=== PATIENT | male | born 1950 | race Caucasian/White ===

== ENCOUNTER → 2020-04-25 14:42 | Outpatient (CLI) | payer MEDICARE, OTHER, SELFPAY ==
[2020-04-25 15:28] LABS: Basophils # 0.1 K/mm3 (0-0.2); Basophils % 0.9 % (0.1-2.0); Eosinophils # 0.2 K/mm3 (0.0-0.4); Eosinophils % 2.7 % (0.1-12.0); Hemoglobin 13.4 g/dL (14.1-18.0); Lymphocytes # 1.9 K/mm3 (0.7-4.5); Mean Corpuscular HGB Conc 31.3 g/dL (31.8-35.4); Mean Corpuscular Hemoglobin 26.8 pg (27.0-31.2); Mean Corpuscular Volume 85.7 fl (80-94); Mean Platelet Volume 7.6 fl (7.4-10.4); Monocytes # 0.8 K/mm3 (0.1-1.0); Monocytes % 8.9 % (1.7-9.3); Neutrophils # 5.6 K/mm3 (1.8-7.8); Neutrophils % 65.3 % (37.0-80.0); Platelet Count 238 K/mm3 (142-424); Red Blood Count 5.01 M/mm3 (4.60-6.20); Red Cell Distribution Width 14.3 % (11.5-17.5); White Blood Count 8.6 K/mm3 (4.8-10.8)
[2020-04-25 16:29] LABS: Alanine Aminotransferase 19 U/L (12-78); Albumin/Globulin Ratio 1.2 (1.1-1.8); Alkaline Phosphatase 148 U/L (38-126); Anion Gap 16.3 mEq/L (5-15); Aspartate Amino Transferase 31 U/L (17-59); Bilirubin,Total 0.5 mg/dl (0.2-1.3); Blood Urea Nitrogen 39 mg/dl (9-20); Calcium 9.3 mg/dl (8.4-10.2); Carbon Dioxide 22 mmol/L (22.0-30.0); Chloride 109 mmol/L (98-107); Estimated Glomerular Filt Rate 19 ml/min (>60); GFR (African American) 23 ML/MIN (>60); Globulin 3.3 g/dL (1.3-3.2); Glucose 104 mg/dl (74-100); Potassium 5.3 mmoL/L (3.5-5.1); Sodium 142 mmol/L (136-145); Total Protein,Serum 7.3 g/dl (6.3-8.2)
[2020-04-25 16:59] LABS: Prostate Specific Ag Screen 1.5 ng/ml (0.0-4.0)
== END ==
PROVIDERS: Visit Provider Urology
DX: C67.9 Malignant neoplasm of bladder, unspecified (principal); Z12.5 Encounter for screening for malignant neoplasm of prostate; R31.9 Hematuria, unspecified
CPT/HCPCS: 36415; 80053; 85025; 87086; 87088; 87186; G0103

== ENCOUNTER → 2020-06-21 12:06 | Outpatient (CLI) | payer MEDICARE, OTHER, SELFPAY ==
--- NOTE | 2020-06-21 12:07 | CT_ITS ---
PROCEDURE: CT ABDOMEN PELVIS WO CON CLINICAL INDICATION: bladder cancer worsening kidney fuction ileostomy, bladder cancer x 2 worsening kidney function no prior COMPARISON: No exams were available for comparison TECHNIQUE: Axial images obtained with sagittal and coronal reformats. All CT scans at the facility use one or more dose reduction, viz: automated exposure control, ma/kV adjustment per patient size (including targeted exams where dose is matched to indication, i.e. head), or iterative reconstruction technique. FINDINGS: LOWER THORAX: No acute finding. There are clips at the GE junction ABDOMEN & PELVIS: There is a 10 mm hypodensity in the right hepatic lobe posteriorly segment 6. The spleen, adrenal glands, pancreas, and gallbladder have an unremarkable unenhanced appearance. There is severe bilateral hydronephrosis and hydroureter. There is minimal thickening of the urinary bladder wall on the left and may be due to nondistention. There are no previous exams available for comparison. No pelvic mass or abnormal fluid collection. No renal or ureteral calculi. There are few small nodes in the pelvis No intestinal obstruction or free air. There is a mild amount of retained colonic feces. No evidence of appendicitis or diverticulitis. Colonic diverticulosis is noted. Region. There is degenerative disc disease at L4-5 and L5-S1. IMPRESSION: 1. Severe bilateral hydronephrosis and hydroureter. No obstructing lesions identified. 2. Minimal thickening along the left lateral wall the urinary bladder nonspecific and may be due to nondistention. 3. Small lower ventral abdominal wall hernia just superior to the symphysis pubis with some clips present at this region. Dictated by: Topher Dee MD 06/22/2020 08:13 Topher Dee MD in [place] 06/22/2020 08:13
[2020-06-21 13:34] LABS: Microscopic, Urine URINE MICROSCOPIC (MICROSCOPIC)
[2020-06-21 14:41] LABS: Hemoglobin 13.2 g/dL (14.1-18.0); Mean Corpuscular HGB Conc 31.5 g/dL (31.8-35.4); Mean Corpuscular Hemoglobin 26.9 pg (27.0-31.2); Mean Corpuscular Volume 85.6 fl (80-94); Mean Platelet Volume 7.5 fl (7.4-10.4); Neutrophils % 71.5 % (37.0-80.0); Platelet Count 232 K/mm3 (142-424); Red Cell Distribution Width 14.5 % (11.5-17.5); White Blood Count 8.8 K/mm3 (4.8-10.8)
[2020-06-21 14:42] LABS: Basophils # 0.1 K/mm3 (0-0.2); Basophils % 0.8 % (0.1-2.0); Eosinophils # 0.3 K/mm3 (0.0-0.4); Eosinophils % 3.3 % (0.1-12.0); Lymphocytes # 1.6 K/mm3 (0.7-4.5); Lymphocytes % 17.6 % (10-50); Monocytes # 0.6 K/mm3 (0.1-1.0); Monocytes % 6.8 % (1.7-9.3); Neutrophils # 6.3 K/mm3 (1.8-7.8)
[2020-06-21 14:52] LABS: Albumin Level 4.2 g/dl (3.5-5.0); Anion Gap 13.2 mEq/L (5-15); Blood Urea Nitrogen 36 mg/dl (9-20); Calcium 9.1 mg/dl (8.4-10.2); Carbon Dioxide 22 mmol/L (22.0-30.0); Chloride 111 mmol/L (98-107); Estimated Glomerular Filt Rate 22 ml/min (>60); GFR (African American) 26 ML/MIN (>60); Glucose 106 mg/dl (74-100); Phosphorous 4.3 mg/dl (2.5-4.5); Potassium 5.2 mmoL/L (3.5-5.1); Sodium 141 mmol/L (136-145)
[2020-06-21 14:56] LABS: Appearance,Urine CLEAR (Clear); Bilirubin,Urine Negative (Negative); Blood, Urine 2+ (Negative); Color,Urine YELLOW (Yellow); Glucose,Urine (UA) Negative (Negative); Ketones,Urine Negative (Negative); Leukocyte Esterase,Urine TRACE (Negative); Nitrate,Urine Negative (Negative); PH,Urine 5.5 (5.0-8.5); Protein,Urine 2+ (Negative); Urobilinogen,Urine 0.2 EU/dl (0.2)
[2020-06-21 15:02] LABS: Intact Parathyroid Hormone 90.3 pg/mL (7.5-53.5)
[2020-06-21 15:05] LABS: Creatinine,Urine Random 69 mg/dL (Not Estab.)
[2020-06-21 15:07] LABS: 25-OH Vitamin D, Total 50.8 ng/mL (30-100)
[2020-06-21 15:48] LABS: Bacteria,Urine Trace /lpf
== END ==
PROVIDERS: Internal Medicine Nephrology; PCP Family Medicine; Visit Provider Urology
DX: C67.9 Malignant neoplasm of bladder, unspecified (principal); N28.9 Disorder of kidney and ureter, unspecified; N18.4 Chronic kidney disease, stage 4 (severe)
CPT/HCPCS: 36415; 74176; 80069; 81001; 82306; 82570; 83970; 84155; 85025; 87086

== ENCOUNTER → 2020-06-24 10:34 | Outpatient (POV) | payer MEDICARE, OTHER, SELFPAY | PROVIDERS: Visit Provider Internal Medicine Nephrology | DX: Z00.00 Encounter for general adult medical examination without abnormal findings (principal) ==

== ENCOUNTER 2020-08-12 06:39 | Day surgery (SDC) | payer MEDICARE, OTHER, SELFPAY ==
[2020-08-08 13:24] VITALS: BMI 36.8
[2020-08-12] VITALS (12 sets, daily range): BP systolic 110–160; BP diastolic 31–84; PULSE 53–78; RESP 16–20; TEMP 36.2–43; O2SAT 94–100
[2020-08-12 07:23] LABS: Chloride 110 mmol/L (98-107); Potassium 4.7 mmoL/L (3.5-5.1); Sodium 141 mmol/L (136-145)
[2020-08-12 07:26] LABS: Anion Gap 15.7 mEq/L (5-15); Blood Urea Nitrogen 41 mg/dl (9-20); Carbon Dioxide 20 mmol/L (22.0-30.0); Creatinine Clearance Estimated 36 mL/min (50-200); Estimated Glomerular Filt Rate 18 ml/min (>60); GFR (African American) 22 ML/MIN (>60); Glucose 113 mg/dl (74-100)
[2020-08-12 07:30] LABS: Basophils # 0.1 K/mm3 (0-0.2); Basophils % 0.8 % (0.1-2.0); Eosinophils # 0.3 K/mm3 (0.0-0.4); Eosinophils % 3.8 % (0.1-12.0); Hematocrit 40.8 % (42.0-52.0); Hemoglobin 13.3 g/dL (14.1-18.0); Lymphocytes # 1.6 K/mm3 (0.7-4.5); Lymphocytes % 17.4 % (10-50); Mean Corpuscular HGB Conc 32.6 g/dL (31.8-35.4); Mean Corpuscular Volume 82.7 fl (80-94); Monocytes # 0.7 K/mm3 (0.1-1.0); Monocytes % 7.8 % (1.7-9.3); Neutrophils # 6.3 K/mm3 (1.8-7.8); Neutrophils % 70.4 % (37.0-80.0); Platelet Count 254 K/mm3 (142-424); Red Blood Count 4.93 M/mm3 (4.60-6.20); Red Cell Distribution Width 14.8 % (11.5-17.5)
[2020-08-12 07:44] LABS: Coronavirus 19 IgG Antibody Negative (Negative)
[2020-08-12 08:27] LABS: Coronavirus 19 IgM Antibody Negative (Negative)
--- NOTE | 2020-08-12 09:34 | HMH.ANESCL ---
[facility] Anesthesia Checklist - Patient Identification Patient Identification: Arm Band, Verbal (Name & ) - Structural Data Admitted From: Home Planned Operative Procedure/s: colon Consent for Planned Operative Procedure(s) Verified: Yes Verified Documents: History and Physical - NPO Status Verified Time NPO: 00:00 - Chart Verification Results Verified: CBC, BMP - Additional verifications Patient : No Anesthesia Reactions: No Hx Blood Transfusions: Yes Blood Transfusion Reaction: No Cephalosporin Allergy: No Previous Colonoscopy: No - Cardiovascular Assessment Heart Sounds: S1 & S2 Pulse Strength: Baseline Pulse Rhythm: Regular Peripheral Edema: No - Airway Assessment C-Spine Mobility Assessed: Yes TMJ Mobility Assessed: Yes Dentition: Edentulous - Neurological Assessment Level of Consciousness: Awake, Alert, Appropriate Hx Seizures: No Numbness or tingling in extremities: No - Anesthesia Plan Anesthesia Risk discussed: Yes Anesthesia Plan: Verified ASA Class: III Anesthesia Type: General [facility] History I have reviewed the patient's past medical history: Yes Medical History: Reports:: Cancer (bladder), Hypertension, Kidney Stones, Ulcer Denies:: Diabetes Mellitus Type 1, Diabetes Mellitus Type 2, Internal Pacemaker, MRSA, Seizures *Have you ever received a pneumonia vaccine?: No *Have you received a flu vaccine this season?: No Other Medical History: Denies: Blood Transfusion Reaction Anesthesia experience/problems:: none Other Surgeries: Yes: No Previous Surgery. No: Pacemaker Amputation: No Fractures: No - *Social History Last grade of school completed: Some college Smoking Status: Current every day smoker Tobacco Type: cigars # Packs/Day (cigarettes): 1 Alcohol Intake: never Alcohol Intake Frequency:: a few times a week Substance Use Type: other *Occupational Status:: retired Housing: house Household Members: spouse *Travel in the last 8 weeks: None Family Hx:: Cancer, Diabetes
--- NOTE | 2020-08-12 11:31 | HMH.ANESI ---
[facility] Anesthesia Record Part I Intake, IV Amount: 450 Estimated blood loss (mL): 5 Urine output (mL): 100 Blood Products used (#): none Blood Pressure: 110/31 SaO2: 94 Pulse Rate: 53 Respiratory Rate: 20 Temperature: 97.7 F Patient is:: Drowsy, Stable Stable to PACU at:: 11:27
--- NOTE | 2020-08-12 11:49 | HMH.OPNOTE ---
Date of procedure: 08/12/20 Pre-op Diagnosis:: Left hydroureteronephrosis Post-op Diagnosis:: Left hydroureteronephrosis, left ureteral orifice not visualized Procedure performed:: Cystoscopy with attempted cannulation of the left ureteral orifice Surgeon:: Dax Reynoso MD TURN DOWN WORKER:: Rao Kinney Anesthesia: GETA Estimated blood loss (mL): 0 Clinical Note:: 70-year-old white male with history of bladder cancer, right ureterovesical junction obstruction status post partial cystectomy and right ureteral reimplant now with new left-sided hydroureteronephrosis and worsening kidney function. His creatinine today was 3.4 and his previous creatinine 2.1. He denies any flank pain or urinary difficulties. Operative findings:: No evidence of recurrent bladder cancer, right ureteral orifice is present and is gaping but no evidence of a left ureteral orifice was found. Operative note:: Patient taken to the operating room after informed consent was obtained. The operating table in the supine position and general anesthesia administered. Preoperative antibiotics and sequential compression devices placed. He was then placed into the dorsal lithotomy position prepped and draped in the standard surgical fashion. The 22 [place] scope passed into the urethra and passed into the bladder without difficulty. Bladder was examined in a systematic fashion. Small amount of debris noted in the bladder base and the bladder was flushed of all debris. The bladder was then examined in a systematic fashion. There is no evidence of mucosal abnormalities, stones, diverticula or trabeculation. The right ureteral orifice was the gaping nature and no doubt is a refluxing type of ureter. Exhaustive attempts that finding the left ureteral orifice were unsuccessful. A ureteral catheter and guidewire passed through the scope and several possible areas were probed with no no luck. After an hour of attempting to find left ureteral orifice I aborted the procedure. The bladder drained and the scope removed. Urojet placed into the urethra for comfort measures. Patient transferred to recovery in stable condition. We will need to set up an antegrade nephrostomy with antegrade pyelogram and internalization of a stent. Condition: stable Disposition: PACU Specimens:: None Complications:: None
--- NOTE | 2020-08-12 11:49 | PC.NURSE ---
1139-attempted to void per urinal, unsucessful, pt reports he would like to use bathroom when he gets to post op, denies pain, eating ice chips and drinking water w/out difficulty, vss, will continue to monitor
--- NOTE | 2020-08-12 11:59 | PC.NURSE ---
1154-detailed report called to BENNY Urbina 1157-pt transported to post op via stretcher with noreen rails up and left in care of BENNY Urbina with bed locked in lowest position, vss, pt stable
--- NOTE | 2020-08-12 14:55 | HMH.ANESII ---
[facility] Anesthesia Record Part II Discharge Time: 11:57 Destination: Surgical Day Care (OP Surgery) PACU nurse assessment reviewed?: Yes Patient Condition:: Good Anesthesia Complications:: None Swallowing reflex intact?: Yes Cyanosis?: No Blood Pressure: 150/75 Pulse Rate: 59 Temperature: 97.8 F Mental Status: Alert & Oriented Pain level:: 0 Nausea and/or vomitting:: None Intake, IV Amount: 35
== END 2020-08-12 12:33 | disposition home or self-care (01) ==
LOC: OR 06:41
PROVIDERS: PCP Family Medicine; Visit Provider Urology
PROC: 0TJB8ZZ Inspection of Bladder, Via Natural or Artificial Opening Endoscopic (ICD-10-PCS; CPT 52000; principal; 2020-08-12 10:00)
DX: Z85.51 Personal history of malignant neoplasm of bladder (principal); Z87.19 Personal history of other diseases of the digestive system; N13.39 Other hydronephrosis; Z87.442 Personal history of urinary calculi; I10 Essential (primary) hypertension
CPT/HCPCS: 52341; 36415; 80048; 85025; 86328; 96374

== ENCOUNTER 2020-10-28 09:33 | Day surgery (SDC) | payer MEDICARE, OTHER, SELFPAY ==
[2020-10-24 12:36] VITALS: BMI 37.0
--- NOTE | 2020-10-24 12:46 | SUR.PREOP ---
pt stated he just started antibiotic for bladder infection 10/23 . When he went to Dr muller sx preop in [place] his UA showed infection and he was srtarted on antibiotic. Spoke with Zohra to clarify that pt was ok to proceed with Dr Carmen garza on Wednesday. Zohra stated it okay to proceed.
[2020-10-28] VITALS (11 sets, daily range): BP systolic 123–149; BP diastolic 51–89; PULSE 52–62; RESP 12–20; TEMP 36.7–36.9; O2SAT 94–100
--- NOTE | 2020-10-28 10:11 | P.PN_ITS ---
[facility] Anesthesia Checklist - Patient Identification Patient Identification: Arm Band, Verbal (Name & ) - Structural Data Admitted From: Home Planned Operative Procedure/s: cysto Consent for Planned Operative Procedure(s) Verified: Yes Verified Documents: History and Physical - NPO Status Verified Time NPO: 00:00 - Chart Verification Results Verified: CBC, BMP - Additional verifications Patient : No Anesthesia Reactions: No Hx Blood Transfusions: Yes Blood Transfusion Reaction: No Cephalosporin Allergy: No Previous Colonoscopy: Yes - Cardiovascular Assessment Heart Sounds: S1 & S2 Pulse Strength: Baseline Pulse Rhythm: Regular Peripheral Edema: No - Airway Assessment C-Spine Mobility Assessed: Yes TMJ Mobility Assessed: Yes Dentition: Edentulous - Neurological Assessment Level of Consciousness: Awake, Alert, Appropriate Hx Seizures: No Numbness or tingling in extremities: No - Anesthesia Plan Anesthesia Risk discussed: Yes Anesthesia Plan: Patient unable to respond/answer ASA Class: III Anesthesia Type: General [facility] History I have reviewed the patient's past medical history: Yes Medical History: Reports:: Hypertension, Kidney Stones, Ulcer Denies:: Cancer, Diabetes Mellitus Type 1, Diabetes Mellitus Type 2, Internal Pacemaker, MRSA, Seizures *Have you ever received a pneumonia vaccine?: No *Have you received a flu vaccine this season?: No Other Medical History: Denies: Blood Transfusion Reaction Anesthesia experience/problems:: none Other Surgeries: Yes: No Previous Surgery. No: Pacemaker Amputation: No Fractures: No - *Social History Last grade of school completed: High school graduate Smoking Status: Current some day smoker Tobacco Type: cigars # Packs/Day (cigarettes): 1 Alcohol Intake: current Alcohol Intake Frequency:: a few times a month Substance Use Type: other *Occupational Status:: retired Housing: house Household Members: spouse *Travel in the last 8 weeks: [facility] the [facility] Family Hx:: Cancer, Coronary Artery Disease, Diabetes, Hypertension
[2020-10-28 10:37] LABS: Anion Gap 14.7 mEq/L (5-15); Blood Urea Nitrogen 43 mg/dl (9-20); Carbon Dioxide 17 mmol/L (22.0-30.0); Chloride 110 mmol/L (98-107); Creatinine Clearance Estimated 32 mL/min (50-200); Estimated Glomerular Filt Rate 16 ml/min (>60); GFR (African American) 19 ML/MIN (>60); Glucose 131 mg/dl (74-100); Potassium 4.7 mmoL/L (3.5-5.1); Sodium 137 mmol/L (136-145)
[2020-10-28 10:59] LABS: Basophils # 0.1 K/mm3 (0-0.2); Basophils % 0.6 % (0.1-2.0); Eosinophils # 0.3 K/mm3 (0.0-0.4); Eosinophils % 2.8 % (0.1-12.0); Hematocrit 38.6 % (42.0-52.0); Hemoglobin 12.8 g/dL (14.1-18.0); Lymphocytes # 1.5 K/mm3 (0.7-4.5); Mean Corpuscular Hemoglobin 27.6 pg (27.0-31.2); Mean Corpuscular Volume 83.8 fl (80-94); Mean Platelet Volume 7.9 fl (7.4-10.4); Monocytes # 0.7 K/mm3 (0.1-1.0); Monocytes % 6.6 % (1.7-9.3); Neutrophils # 8.3 K/mm3 (1.8-7.8); Neutrophils % 75.9 % (37.0-80.0); Platelet Count 240 K/mm3 (142-424); Red Blood Count 4.61 M/mm3 (4.60-6.20); Red Cell Distribution Width 15.4 % (11.5-17.5); White Blood Count 10.9 K/mm3 (4.8-10.8)
--- NOTE | 2020-10-28 13:13 | P.OP_ITS ---
Date of procedure: 10/28/20 Pre-op Diagnosis:: History of bladder cancer, history of left ureterovesical junction obstruction status post antegrade stent placement, bilateral hydronephrosis Post-op Diagnosis:: No evidence of bladder tumor recurrence, no evidence of any tumor or obstruction in the ureters. Procedure performed:: Cystoscopy with left stent removal and bilateral ureteroscopy Surgeon:: Dax Reynoso MD TRAVEL SALES CONSULTANT:: Other (manuel) Anesthesia: GETA Estimated blood loss (mL): 0 Clinical Note:: Patient is a 70-year-old white male with a history of bladder cancer and chronic kidney disease. At his last follow-up he was noted to have new left-sided hydronephrosis and I was unable to locate his left ureter at cystoscopy. He was referred to [facility] radiology department where he underwent left percutaneous nephrostomy and then it took 2 attempts to get a stent by the left UVJ. He has had the stent now for 6 weeks and returns for cystoscopic evaluation. Operative findings:: No evidence of recurrent bladder cancer. The right ureteral orifice is gaping owing to previous right ureteral reimplant. The stent was removed from his left ureteral orifice and ureteroscopy revealed no evidence of any stenosis or tumor in the left ureter. Operative note:: Patient taken to the operating room after informed consent was obtained. He was placed on the operating room table and general anesthesia administered. Preoperative antibiotics and sequential compression devices placed. Patient then placed into the dorsal lithotomy position and prepped draped in the standard surgical fashion. A 22 [place] cystoscope then passed into the urethral meatus and into the bladder without difficulty. The bladder was examined in a systematic fashion with a 30 and 7 degree lenses. The bladder had a lot of debris in it and it was irrigated free of any debris. The left stent was noted from the left ureteral orifice. A flexible grasper was placed through the cystoscope and the grasper removed without difficulty. The scope was replaced and there was no evidence of recurrent bladder tumors. The right ureteral orifice was gaping owing to a previous right ureteral reimplant. The left ureteral orifice was in its normal anatomic position. A guidewire was passed into the left ureteral orifice and the cystoscope removed. Our semirigid ureteroscope was then passed into the bladder and into the left ureter and up to the proximal ureter without evidence of tumors or other abnormality noted. At the distal ureter there is no evidence of any stenosis. Scope then passed into the right ureteral orifice and there is no evidence of any abnormalities here although the right ureter was dilated proximally and likely a chronic finding. The bladder then drained and the scope removed. Urojet placed into the urethra. Patient tolerated procedure well there are no complications. Condition: stable Disposition: PACU Specimens:: None Complications:: None
--- NOTE | 2020-10-30 08:18 | HMH.ANESII ---
[facility] Anesthesia Record Part II Discharge Time: 12:45 Destination: Surgical Day Care (OP Surgery) PACU nurse assessment reviewed?: Yes Patient Condition:: Good Anesthesia Complications:: None Swallowing reflex intact?: Yes Cyanosis?: No Blood Pressure: 130/67 Pulse Rate: 55 Temperature: 98 F Mental Status: Alert & Oriented Pain level:: 0 Nausea and/or vomitting:: None Intake, IV Amount: 0
[2020-10-30 08:19] VITALS: BP 130/67; PULSE 55; TEMP 36.6
== END 2020-10-28 13:41 | disposition home or self-care (01) ==
LOC: OR 09:36
PROVIDERS: PCP Family Medicine; Visit Provider Urology
PROC: (CPT 52310; principal; 2020-10-28 11:00)
DX: Z08 Encounter for follow-up examination after completed treatment for malignant neoplasm (principal); Z85.51 Personal history of malignant neoplasm of bladder; Z87.19 Personal history of other diseases of the digestive system; I10 Essential (primary) hypertension; Z87.442 Personal history of urinary calculi; Z72.0 Tobacco use; Z80.9 Family history of malignant neoplasm, unspecified; Z82.49 Family history of ischemic heart disease and other diseases of the circulatory system; Z84.89 Family history of other specified conditions; Z83.3 Family history of diabetes mellitus; Z79.899 Other long term (current) drug therapy
CPT/HCPCS: 52310; 80048; 85025; 96374; J2405

== ENCOUNTER → 2021-03-06 16:44 | Outpatient (CLI) | payer MEDICARE, OTHER, SELFPAY | PROVIDERS: Visit Provider Urology | DX: C67.9 Malignant neoplasm of bladder, unspecified (principal); Z01.812 Encounter for preprocedural laboratory examination; Z20.822 Contact with and (suspected) exposure to COVID-19 | CPT/HCPCS: U0003 ==

== ENCOUNTER 2021-03-07 09:30 | Day surgery (SDC) | payer MEDICARE, OTHER, SELFPAY ==
[2021-03-04 10:38] VITALS: BMI 33.6
[2021-03-07 09:52] VITALS: BP 146/75; PULSE 62; RESP 15; TEMP 36.8; O2SAT 99
[2021-03-07 10:30] VITALS: BP 136/78; PULSE 65; RESP 18; TEMP 36.6; O2SAT 98
--- NOTE | 2021-03-07 10:32 | CT_ITS ---
PROCEDURE: CT ABDOMEN PELVIS WO CON CLINICAL INDICATION: HX BLADDER CA Follow-up bladder cancer COMPARISON: CT CT ABDOMEN PELVIS WO CON from 06/21/2020 TECHNIQUE: Axial images obtained with sagittal and coronal reformats. All CT scans at the facility use one or more dose reduction, viz: automated exposure control, ma/kV adjustment per patient size (including targeted exams where dose is matched to indication, i.e. head), or iterative reconstruction technique. FINDINGS: LOWER THORAX: Coronary artery calcifications are noted. Lung bases are clear. ABDOMEN & PELVIS: Stable hypodensity right hepatic lobe measuring approximately 1 cm the gallbladder, spleen, and adrenal glands and pancreas have an unremarkable unenhanced appearance. There is severe bilateral hydronephrosis and hydroureter similar to the previous exam. There is a small amount air in the urinary bladder which may be due to recent instrumentation. No retroperitoneal or pelvic mass is apparent. No renal or ureteral calculi. Surgical clips are present in the pelvis. Surgical clips are also present in the pelvic region anteriorly deep to the abdominal wall. There postsurgical changes of the abdominal wall. No obvious pelvic mass. Urinary bladder contours asymmetric be more prominent on the right compared to the left side. Previously noted thickening of the lateral wall the urinary bladder is less apparent. There are degenerative changes in the lumbar spine with degenerative disc disease at L4-5 and L5-S1. No obvious lytic or blastic lesion apparent. No change in the lower abdominal wall hernia just superior to the symphysis pubis slightly toward the left containing fat. IMPRESSION: Overall stable CT appearance of the abdomen and pelvis. There remains severe bilateral hydronephrosis and hydroureter Stable hypodensity of the right lobe of the liver. Minimal amount of air density in the urinary bladder which could be due to recent instrumentation. Dictated by: Topher Dee MD 03/10/2021 09:25 Topher Dee MD in [place] 03/10/2021 09:25
[2021-03-07 10:51] VITALS: BP 145/76; PULSE 65; RESP 18; O2SAT 98
--- NOTE | 2021-03-07 11:06 | HMH.OPNOTE ---
Date of procedure: 03/07/21 Pre-op Diagnosis:: History of bladder cancer and bilateral UvJ obstruction Post-op Diagnosis:: Same Procedure performed:: Surveillance cystoscopy Surgeon:: Dax Reynoso MD Anesthesia: local Estimated blood loss (mL): 0 Clinical Note:: 70-year-old white male with a history of bladder cancer and bilateral ureterovesical junction obstruction. He has undergone previous TURBT as well as a partial cystectomy and right partial ureterectomy with right and a subsequent left ureteral vesicle junction obstruction was managed with a left stent placement. Patient returns today in routine follow-up denies any flank pain or hematuria. He has had recent right knee surgery and has lost 50 pounds of his own accord. Operative findings:: There was some debris in the bladder but no evidence of recurrent bladder tumors. Both distal ureters were wide open and larger than normal due to previous procedures. Operative note:: Patient taken to the cystoscopy suite after informed consent was obtained. On the stretcher is prepped draped in standard surgical fashion. Saline can placed into the urethra. After few minutes the flexible cystoscope introduced into the urethral meatus and passed to the prostatic urethra which showed no evidence of obstruction. Bladder was entered and examined in a systematic fashion. Was a moderate trabeculation present in the bladder is a bit unusual as it is prostate is nonobstructing he has not had previous TURP. There is no evidence of recurrent bladder tumors. There was some debris in the bladder which has been seen previously. Both ureteral orifices were gaping and wide open and clear efflux of urine was noted from each. Scope removed patient tolerated the procedure well. We will see him back in 6 months for cystoscopy. Condition: stable Disposition: same day Specimens:: None Complications:: None
[2021-03-07 11:21] LABS: Chloride 106 mmol/L (98-107)
[2021-03-07 11:22] LABS: Potassium 4.2 mmoL/L (3.5-5.1); Sodium 142 mmol/L (136-145)
[2021-03-07 11:24] LABS: Alanine Aminotransferase 11 U/L (12-78); Alkaline Phosphatase 139 U/L (38-126); Aspartate Amino Transferase 23 U/L (17-59); Bilirubin,Total 0.4 mg/dl (0.2-1.3); Blood Urea Nitrogen 39 mg/dl (9-20); Creatinine Clearance Estimated 43 mL/min (50-200); Estimated Glomerular Filt Rate 25 ml/min (>60); GFR (African American) 30 ML/MIN (>60)
[2021-03-07 11:25] LABS: Albumin Level 3.9 g/dl (3.5-5.0); Albumin/Globulin Ratio 1.2 (1.1-1.8); Anion Gap 16.2 mEq/L (5-15); Calcium 8.7 mg/dl (8.4-10.2); Carbon Dioxide 24 mmol/L (22.0-30.0); Globulin 3.3 g/dL (1.3-3.2); Glucose 116 mg/dl (74-100); Total Protein,Serum 7.2 g/dl (6.3-8.2)
== END 2021-03-07 11:39 | disposition home or self-care (01) ==
LOC: OUTP 09:34
PROVIDERS: PCP Family Medicine; Visit Provider Urology
DX: Z08 Encounter for follow-up examination after completed treatment for malignant neoplasm (principal); Z85.51 Personal history of malignant neoplasm of bladder; Z90.6 Acquired absence of other parts of urinary tract; Z96.0 Presence of urogenital implants; N32.89 Other specified disorders of bladder; I10 Essential (primary) hypertension; Z87.442 Personal history of urinary calculi; F32.9 Major depressive disorder, single episode, unspecified; E07.9 Disorder of thyroid, unspecified; Z79.899 Other long term (current) drug therapy
CPT/HCPCS: 52000; 36415; 74176; 80053

== ENCOUNTER → 2021-09-12 15:21 | Outpatient (CLI) | payer MEDICARE, OTHER, SELFPAY ==
--- NOTE | 2021-09-12 15:22 | US_ITS ---
PROCEDURE: US KIDNEY CLINICAL INDICATION: Bladder cancer COMPARISON: CT CT ABDOMEN PELVIS WO CON from 03/07/2021 FINDINGS: The right kidney is [id number]. Severe hydronephrosis with cortical thinning The left kidney is [id number]. Severe hydronephrosis with cortical thinning. The right proximal ureter is dilated. IMPRESSION: Severe bilateral hydronephrosis with bilateral renal cortical thinning. Dictated by: Topher Dee MD 09/12/2021 16:37 Topher Dee MD in [place] 09/12/2021 16:37
== END ==
PROVIDERS: PCP Family Medicine; Visit Provider Urology
DX: N13.5 Crossing vessel and stricture of ureter without hydronephrosis (principal); C67.9 Malignant neoplasm of bladder, unspecified
CPT/HCPCS: 76770; C9803; U0003; U0005

== ENCOUNTER 2021-09-15 09:18 | Day surgery (SDC) | payer MEDICARE, OTHER, SELFPAY ==
[2021-09-03 11:00] VITALS: BMI 32.6
[2021-09-15 09:33] VITALS: BP 142/73; PULSE 61; RESP 18; TEMP 36.7; O2SAT 98
[2021-09-15 10:12] VITALS: BP 141/81; PULSE 57; RESP 16; TEMP 36.6; O2SAT 97
[2021-09-15 11:26] LABS: Chloride 107 mmol/L (98-107); Potassium 5.3 mmoL/L (3.5-5.1); Sodium 138 mmol/L (136-145)
[2021-09-15 11:29] LABS: Alanine Aminotransferase 16 U/L (12-78); Albumin Level 3.7 g/dl (3.5-5.0); Albumin/Globulin Ratio 1.2 (1.1-1.8); Alkaline Phosphatase 122 U/L (38-126); Anion Gap 12.3 mEq/L (5-15); Aspartate Amino Transferase 30 U/L (17-59); Bilirubin,Total 0.2 mg/dl (0.2-1.3); Blood Urea Nitrogen 51 mg/dl (9-20); Calcium 8.7 mg/dl (8.4-10.2); Carbon Dioxide 24 mmol/L (22.0-30.0); Creatinine Clearance Estimated 40 mL/min (50-200); Estimated Glomerular Filt Rate 25 ml/min (>60); GFR (African American) 30 ML/MIN (>60); Glucose 106 mg/dl (74-100); Total Protein,Serum 6.7 g/dl (6.3-8.2)
--- NOTE | 2021-09-15 15:08 | HMH.OPNOTE ---
Date of procedure: 09/15/21 Pre-op Diagnosis:: History of bladder cancer, history of bilateral ureterovesical junction obstruction, bilateral hydronephrosis Post-op Diagnosis:: History of bladder cancer without evidence of recurrence today. Both ureteral orifices are wide open and gaping configuration possibly allowing some reflux of urine. Procedure performed:: Surveillance cystoscopy Surgeon:: Dax Reynoso MD Anesthesia: local Estimated blood loss (mL): 0 Clinical Note:: 71-year-old white male with history of bladder cancer and bilateral ureterovesical junction obstruction. The right UVJ obstruction required partial ureterectomy and reimplant. Patient has a history of partial cystectomy at the dome of the bladder for bladder cancer. His left UPJ obstruction has been treated with left stent placement in the past. An ultrasound performed today showed bilateral hydronephrosis with cortical thinning. Operative findings:: Patient's bladder showed severe trabeculation and a large capacity bladder with debris noted in the bladder. There is no evidence of bladder tumor recurrence. Both ureteral orifices were in their normal anatomic position and were of a gaping configuration possibly refluxing. Prostate is not enlarged. Operative note:: Patient taken to the operating room after informed consent was obtained. On the stretcher he was prepped and draped in the standard surgical fashion and 2% lidocaine placed into the urethra. After 5 minutes the flexible scope introduced into the urethral meatus and the scope passed to the prostatic urethra which showed some mild hyperplasia. The bladder was entered and examined in a systematic fashion. There was severe trabeculation noted and large capacity bladder extending towards the umbilicus. The ureteral orifices were of a gaping configuration. There was clear efflux of urine. There is no evidence of bladder tumor recurrence. There was debris noted in the bladder. Scope removed patient tolerated procedure well. We discussed the findings in his bladder and he was reassured there is no evidence of bladder cancer but he does have evidence of a neurogenic bladder and he was taught how to self catheterize and he is to do this 3 times a day and record residuals. He was given sample bag of catheters today. Abdomen draw complete metabolic profile before discharge to evaluate his kidney function. We discussed that catheterizing well decrease his bladder pressures and prevent any further kidney damage and will also help with some of urinary incontinence that he is having. Condition: stable Disposition: same day Specimens:: None Complications:: None
== END 2021-09-15 10:25 | disposition home or self-care (01) ==
LOC: OUTP 09:19
PROVIDERS: PCP Family Medicine; Visit Provider Urology
DX: N13.30 Unspecified hydronephrosis (principal); Z85.51 Personal history of malignant neoplasm of bladder; Z87.448 Personal history of other diseases of urinary system; Z79.899 Other long term (current) drug therapy
CPT/HCPCS: 52000; 80053

== ENCOUNTER → 2022-03-14 12:07 | Outpatient (CLI) | payer MEDICARE, OTHER, SELFPAY | PROVIDERS: Visit Provider Urology | DX: C67.9 Malignant neoplasm of bladder, unspecified (principal); Z01.812 Encounter for preprocedural laboratory examination; Z20.822 Contact with and (suspected) exposure to COVID-19 | CPT/HCPCS: C9803; U0003; U0005 ==

== ENCOUNTER 2022-03-16 10:39 | Day surgery (SDC) | payer MEDICARE, OTHER, SELFPAY ==
[2022-03-11 13:22] VITALS: BMI 26.8
[2022-03-16 10:55] VITALS: BP 122/54; PULSE 69; RESP 18; TEMP 36.6; O2SAT 97
[2022-03-16 11:43] VITALS: BP 117/66; PULSE 68; RESP 18; O2SAT 98
[2022-03-16 11:53] VITALS: BP 117/66; PULSE 68; RESP 18; O2SAT 98
--- NOTE | 2022-03-16 12:38 | P.OP_ITS ---
Date of procedure: 03/16/22 Pre-op Diagnosis:: History of bladder cancer Post-op Diagnosis:: History of bladder cancer without evidence of recurrence today. Procedure performed:: Cystoscopy Surgeon:: Dax Reynoso MD Anesthesia: local Estimated blood loss (mL): 0 Clinical Note:: 79-year-old white male with a history of bladder cancer presents for surveillance cystoscopy. His has since he was last seen in September 2021 and he has lost about 80 pounds of his own accord. He denies any interval hematuria but does state that he is having a lot of sediment in the urine. He has been catheterizing his bladder twice a day since his last cystoscopy visit with me in September 2021. He states he gets is much out by catheterization as he does by voiding which is usually between 4 and 500 cc. Operative findings:: There was no evidence of recurrent bladder cancer today. There was quite a bit of sediment in the bladder. There was little resistance to passage of the 16 [place] Citizen red rubber catheter which was performed prior to the procedure to empty the bladder. This was sent off for urinalysis and culture. Operative note:: Patient taken to the cystoscopy suite after informed consent was obtained. On the stretcher he was prepped draped in the standard surgical fashion. 2% lidocaine placed into the urethra and clamped for 5 minutes. After 5 minutes the 16 [place] Citizen red rubber catheter passed into the urethra there was a little bit of resistance at the bulbar urethra but the coud? catheter was passed into the bladder and a urine specimen was sent off for culture. The bladder was emptied with a catheter and the catheter removed. The flexible cystoscope and introduced into the urethral meatus and then passed to the bulbar urethra and by the slight narrowing and the prostatic urethra was nonobstructing. The bladder was entered and examined in a systematic fashion. There was a lot of sediment in the bladder. There was adequate visualization and there was no evidence of recurrent bladder tumors. Both ureteral orifices in their normal anatomic position and both were have a gaping configuration owing to previous reimplant on the right and dilation on the left. The scope then removed. The patient tolerated procedure well there are no complications. We discussed the findings today and I recommended that he catheterize himself 3 times a day instead of twice a day and to keep recording residuals. We will order appropriate catheters for him as he states he is out of them. Return to office 1 year with cystoscopy. Condition: stable Disposition: same day Specimens:: Urine culture Complications:: None
[2022-03-16 13:39] LABS: Microscopic,Cath URINE MICROSCOPIC (MICROSCOPIC)
[2022-03-16 13:42] LABS: Appearance,Urine/Cath CLOUDY (Clear); Bilirubin,Cath Negative (Negative); Blood, Urine/Cath 2+ (Negative); Color,Urine/Cath YELLOW (Yellow); Glucose,Urine/Cath (UA) Negative (Negative); Ketones,Urine/Cath Negative (Negative); Leukocyte Esterase,Cath 3+ (Negative); Nitrate,Cath POSITIVE (Negative); Protein,Urine/Cath 1+ (Negative); Urobilinogen,Cath 0.2 EU/dl (0.2)
[2022-03-16 13:59] LABS: Amorphous Sediment,Ur/Cath 2+ /lpf; Bacteria,Urine/Cath 4+ /lpf; Squamous Epithelial Ur./Cath Occasional #/hpf (0-5); WBC,Urine/Cath TNTC #/hpf (0-3)
== END 2022-03-16 11:53 | disposition home or self-care (01) ==
LOC: OUTP 10:40
PROVIDERS: PCP Family Medicine; Visit Provider Urology
DX: Z85.51 Personal history of malignant neoplasm of bladder (principal); Z79.899 Other long term (current) drug therapy; R36.9 Urethral discharge, unspecified
CPT/HCPCS: 52000; 81001; 87086; 87088; 87186